=== PATIENT | male | born 1955 | race Caucasian/White ===

== ENCOUNTER 2016-09-26 06:10 | Day surgery (SDC) | payer MEDICAID, OTHER ==
[2016-09-26] MEDS ORDERED: LIDOCAINE 1% 2 ML INJ ID PRN (06:32)
[2016-09-26] MEDS ORDERED: NS 500 ML IV SCH (07:00)
[2016-09-26] MEDS ORDERED: MIDAZOLAM 2 MG/2 ML VIAL ONE ×3 (07:19→07:28)
[2016-09-26] MEDS ORDERED: fentaNYL 100 MCG/2 ML INJ ONE (07:20)
--- NOTE | 2016-09-26 07:25 | PDANEPAE ---
ANE History of Present Illness Patient presents for screening colonoscopy ANE Past Medical History - Cardiovascular History Hx Hypertension: No Hx Arrhythmias: No Hx Chest Pain: No Hx Coronary Artery / Peripheral Vascular Disease: No Hx CHF / Valvular Disease: No Hx Palpitations: No - Pulmonary History Hx COPD: No Hx Asthma/Reactive Airway Disease: No Hx Recent Upper Respiratory Infection: No Hx Oxygen in Use at Home: No Hx Sleep Apnea: No Sleep Apnea Screening Result - Last Documented: Negative - Neurologic History Hx Cerebrovascular Accident: No Hx Seizures: No Hx Dementia: No - Endocrine History Hx Diabetes: No - Renal History Hx Renal Disorders: No Renal History Comment: KIDNEY STONE 03/2015 PASSED ON HIS OWN - Liver History Hx Hepatic Disorders: No - Neurological & Psychiatric Hx Hx Neurological and Psychiatric Disorders: No - Cancer History Hx Cancer: No - Congenital Disorder History Hx Congenital Disorders: No - GI History Hx Gastrointestinal Disorders: No Gastrointestinal History Comment: screening colonoscopy - Other Health History Other Health History: MISSING BOTTOM AND UPPER LEFT TOOTH. OA joints. Gout - on Allopurinol - Chronic Pain History Chronic Pain: No - Surgical History Prior Surgeries: R total shoulder . L thumb surgery . LT TOTAL SHLDR 04/2015. LT SHLDR SCOPE 03/2013. ISACC KNEE SCOPES ANE Review of Systems - Exercise capacity Exercise capacity: >=4 METS METS (RN): 4 METS ANE Patient History - Allergies Allergies/Adverse Reactions: acetaminophen [From Vicodin] Allergy (Intermediate, Verified 09/04/16 16:07) Diarrhea hydrocodone bitartrate [From Vicodin] Allergy (Verified 09/04/16 16:07) insomnia - Home Medications Home Medications: Ibuprofen [Motrin (*)] 400 - 800 mg PO BID PRN 09/21/15 [Last Taken 09/04/16] Allopurinol 09/04/16 [Last Taken 09/23/16] - NPO status NPO Since - Liquids (Date): 09/25/16 NPO Since - Liquids (Time): 23:00 NPO Since - Solids (Date): 09/25/16 NPO Since - Solids (Time): 08:15 - Anes Hx Anes Hx: no prior problems - Smoking Hx Smoking Status: Former smoker ANE Labs/Vital Signs - Vital Signs Blood Pressure: 129/93 Heart Rate: 88 Respiratory Rate: 20 O2 Sat (%): 93 Height: 182.88 cm Weight: 83.007 kg ANE Physical Exam - Airway Neck exam: FROM Mallampati Score: Class 1 Mouth exam: normal dental/mouth exam - Pulmonary Pulmonary: no respiratory distress - Cardiovascular Cardiovascular: regular rate and rhythym - ASA Status ASA Status: II ANE Anesthesia Plan Anesthesia Plan: MAC (RBA discussed)
[2016-09-26] MEDS ORDERED: PROPOFOL/EMULSION 500 MG/50 ML BOTTLE IV ONE (07:27)
--- NOTE | 2016-09-26 07:29 | PDGENHP ---
History & Physical Chief Complaint: screening colonoscopy History of Present Illness: screening colonoscopy Relevant Physical Exam: GEN: NAD. Cardiac: RRR. Lungs: CTA B. Abd: Soft, nt, nd
[2016-09-26] MEDS ORDERED: LIDOCAINE 2% 5 ML SDV ONE (07:33)
[2016-09-26] MEDS ORDERED: ONDANSETRON 4 MG/2 ML VIAL IVP PRN (07:39)
[2016-09-26] MEDS ORDERED: LR 500 ML IV PRN (07:39)
[2016-09-26] MEDS ORDERED: NALOXONE HCL 0.4 MG/ML INJ IVP PRN (07:39)
[2016-09-26] MEDS ORDERED: fentaNYL 100 MCG/2 ML INJ IVP PRN (07:39)
--- NOTE | 2016-09-26 07:55 | POSTOPPROG ---
Post Op Note Date of Operation: 09/26/16 Surgeon: Jorge Cox Pre-op Diagnosis: Screening colonoscopy Post-op Diagnosis: Colon polyps s/p removal Indication: Screening colonoscopy Procedure: Colonoscopy w/ snare Findings: Colon polyps Inf/Abcess present in the surg proc area at time of surgery?: Yes
--- NOTE | 2016-09-26 07:56 | POSTOPPROG ---
Post Op Note Date of Operation: 09/26/16 Surgeon: Jorge Cox Pre-op Diagnosis: Screening colonoscopy Post-op Diagnosis: Colon polyps Indication: Screening colonoscopy Procedure: Colonoscopy with snare Findings: Colon polyps Inf/Abcess present in the surg proc area at time of surgery?: No
--- NOTE | 2016-09-26 08:14 | POSTANESTH ---
Post Anesthetic Evaluation Cardiovascular Status: Normal, Stable Respiratory Status: Normal, Stable Level of Consciousness/Mental Status: Can Participate in Eval Pain Control: Adequate, Prn Tx Ordered Nausea/Vomiting Control: Adequate, Prn Tx Ordered Complications Possibly Related to Anesthesia: None Noted
[2016-09-26 09:21] VITALS: BP 105/74; PULSE 66; RESP 14; TEMP 98.2; O2SAT 94
--- NOTE | 2016-09-26 10:12 | GPN ---
[f rep st] PROCEDURE NOTE PREPROCEDURE DIAGNOSIS: Screening colonoscopy. POSTPROCEDURE DIAGNOSIS: Colon polyps, status post removal. PROCEDURE: Colonoscopy with snare. MEDICATIONS: Monitored anesthesia care. INDICATIONS: The patient is a 61-year-old gentleman here for screening colonoscopy. The risks and benefits of the procedure discussed with the patient. Consent obtained. Risks include, but not hernandez ited to, bleeding, perforation, sedation. The patient is ASA class 2. DESCRIPTION OF PROCEDURE: The adult colonoscope was advanced into the terminal ileum, which appears normal. The ileocecal valve, appendiceal orifice, cecum are normal. There is a 3 mm polyp in the ascending colon, which is removed using cold snare polypectomy and sent to pathology. The hepatic f lexure, transverse colon, splenic flexure, descending colon are normal. In the sigmoid colon there were 2 polyps measuring 3-4 mm, which are removed using cold snare polypectomy technique and sent to pathology. The rectum is normal. Retroflexed views in the rectum are normal. IMPRESSION: Three small colon polyps, status post removal. Otherwise, normal colonoscopy. RECOMMENDATION: 1. Discharge home with escort. 2. Advance diet as tolerated. 3. Follow up with final pathology results. Results known within 10 days. 4. Repeat colonoscopy based on pathology results. If 3 or more polyps are found to be adenomatous, repeat colonoscopy in 3 years is recommended. If 1 to 2 polyps is found to be adenomatous, repeat colonoscopy in 5 years is recommended. Otherwise, repeat colonoscopy in 10 years is recommended. 5. Thank you for allowing me to participate in the care of your patient. Please do not hesitate to call with questions. /[id number]/MODL
== END 2016-09-26 09:22 | disposition home or self-care (01) ==
LOC: FSGY 06:10
PROVIDERS: ATTEND Internal Medicine Gastroenterology
PROC: 0DBK8ZX Excision of Ascending Colon, Via Natural or Artificial Opening Endoscopic, Diagnostic (ICD-10-PCS; principal; 2016-09-26 07:30)
PROC: 0DBN8ZX Excision of Sigmoid Colon, Via Natural or Artificial Opening Endoscopic, Diagnostic (ICD-10-PCS; principal; 2016-09-26 07:30)
DX: Z12.11 Encounter for screening for malignant neoplasm of colon (principal); D12.2 Benign neoplasm of ascending colon; D12.5 Benign neoplasm of sigmoid colon; M10.9 Gout, unspecified; Z87.442 Personal history of urinary calculi; Z96.611 Presence of right artificial shoulder joint; Z96.612 Presence of left artificial shoulder joint
CPT/HCPCS: J2250; J2704; J3010